=== PATIENT | male | born 1980 | race Caucasian/White ===

== ENCOUNTER 2017-07-23 12:24 | Emergency (ER) | payer OTHER ==
[2017-07-23] MEDS: HYDROCODONE/APAP (5/325) TAB PO (13:19)
[2017-07-23] MEDS: BUPIVACAINE 0.5%/EPI (SDV) 30 ML INJ INJ (13:20)
[2017-07-23] MEDS: LIDOCAINE 1% (MDV) 20 ML INJ SC (13:20)
[2017-07-23] MEDS: STERILE WATER 1L IRRIG BTL IRR (13:30)
[2017-07-23] MEDS: CEFAZOLIN 1 GM INJ IM (15:35)
== END 2017-07-23 15:46 | disposition home or self-care (01) ==
LOC: FTE 12:24
DX: S61.412A Laceration without foreign body of left hand, initial encounter (principal); W27.0XXA Contact with workbench tool, initial encounter; Y92.89 Other specified places as the place of occurrence of the external cause
CPT/HCPCS: 12034; 73130-LT; 96372; 99284-25

== ENCOUNTER 2017-07-25 09:17 | Emergency (ER) | payer OTHER | END 2017-07-25 10:17 | disposition home or self-care (01) | LOC: FTE 09:17 | DX: Z48.01 Encounter for change or removal of surgical wound dressing (principal) | CPT/HCPCS: 99281; Z7502 ==